=== PATIENT | male | born 1970 | race Two or more races ===

== ENCOUNTER 2025-03-11 01:51 | Inpatient (IN) | payer OTHER ==
[~2025-03-11] VITALS: Ht 167.6 cm; Wt 108.9 kg
[2025-03-11] MEDS ORDERED: NIFEDIPINE20 MG PO (01:58)
[2025-03-11] MEDS ORDERED: METFORMIN HCL500 M3 PO (01:58)
[2025-03-11] MEDS ORDERED: LOSARTAN-HCTZ1 EAC1 PO (01:58)
[2025-03-11] MEDS ORDERED: FAMOTIDINE/PF 20 MG/2 ML VIAL IV PUSH STA (03:27)
[2025-03-11] MEDS ORDERED: KETOROLAC TROMETHAMINE 30 MG VIAL IV STA (03:29)
[2025-03-11] MEDS ORDERED: 0.9 % SODIUM CHLORIDE 1,000 ML IV ONE (03:30)
[2025-03-11 04:02] LABS: BASO % 0.5 % (0.1-1.2); EOS # 0.12 (0.04-0.54); EOS % 1.3 % (0.7-7.0); LYMPH # 2.90 (1.18-3.74); LYMPH % 30.3 % (19.3-53.1); MEAN PLATELET VOLUME 10.20 fl (9.4-12.4); MONO # 1.13 (0.24-0.82); MONO % 11.8 % (4.7-12.5); NEUT # 5.32 (1.56-6.13); NEUT % 55.5 % (34.0-71.1); RED CELL DISTRIBUTION WIDTH 12.4 % (11.6-14.4)
[2025-03-11 04:30] LABS: INR 1.12
[2025-03-11 04:37] LABS: ALT/SGPT 39.0 U/L (12-78); AST/SGOT 20.0 U/L (15-37); BILIRUBIN TOTAL 0.48 mg/dL (0.3-1.2); BILIRUBIN,CONJUGATED 0.15 mg/dL (0.0-0.2); BUN CREA RATIO 16.0 (7.0-25.0); CREATININE SERUM 0.94 mg/dL (0.70-1.30); GFR 83.95; GLOBULINA 4.0 G/DL (2.4-3.5); GLUCOSE FASTING 121.0 mg/dL (65-100); OSMOLALITY SERUM 276.0 MOSM/KG (275-295)
[2025-03-11] MEDS ORDERED: PIPERACILLIN/TAZOBACTAM SODIUM 3.375 GM in 0.9 % SODIUM CHLORIDE 100 ML IV SCH (06:43)
[2025-03-11 07:15] LABS: URINE APPEARANCE Clear; URINE BILIRRUBIN Negative (NEGATIVE); URINE BLOOD Negative; URINE COLOR Yellow; URINE GLUCOSE Negative (NEGATIVE); URINE KETONE Negative (NEGATIVE); URINE LEUKOCYTE Negative; URINE NITRATE Negative; URINE PROTEIN Negative (NEGATIVE); URINE UROBILINOGEN 0.2 E.U./dl
[2025-03-11 07:17] LABS: URINE RBC 3.3 uL (0.0-20.8)
[2025-03-11 07:20] LABS: URINE BACTERIA 2.4 uL (0.0-1933); URINE CAST 0.00 uL (0.0-1.40); URINE EPITHELIAL CELLS 0.4 uL (0.0-38.8); URINE WBC 0.1 uL (0.0-23.2)
[2025-03-11] MEDS ORDERED: hydrALAZINE HCL 20 MG VIAL IV PRN (11:30)
[2025-03-11] MEDS ORDERED: 0.9 % SODIUM CHLORIDE 1,000 ML IV SCH ×2 (11:30→20:00)
[2025-03-11] MEDS ORDERED: ONDANSETRON HCL 4 MG in 0.9 % SODIUM CHLORIDE 50 ML IV PRN (11:30)
[2025-03-11] MEDS ORDERED: ACETAMINOPHEN 325 MG TABLET PO PRN (11:30)
[2025-03-11] MEDS ORDERED: DEXTROSE 50 % IN WATER 0.5 G/ML DISP.SYRIN IV PRN (11:45)
[2025-03-11] MEDS ORDERED: INSULIN LISPRO 1,000 UNIT/10 ML UNITS SUBCUTANEO PRN (11:45)
[2025-03-11] MEDS ORDERED: MORPHINE SULFATE 2 MG/ML SYRINGE IV PRN (13:00)
[2025-03-11 13:25] VITALS: BP 126/85
[2025-03-11] MEDS ORDERED: KETOROLAC TROMETHAMINE 30 MG VIAL IV PRN (18:45)
[2025-03-11 22:00] VITALS: BP 142/81; O2SAT 95
[2025-03-12 01:15] VITALS: BP 150/77; O2SAT 99
[2025-03-12] MEDS ORDERED: KETOROLAC TROMETHAMINE 30 MG VIAL IV PRN (02:15)
[2025-03-12 06:25] LABS: BASO % 0.4 % (0.1-1.2); EOS # 0.10 (0.04-0.54); EOS % 1.2 % (0.7-7.0); LYMPH # 1.74 (1.18-3.74); LYMPH % 21.7 % (19.3-53.1); MEAN PLATELET VOLUME 10.70 fl (9.4-12.4); MONO # 0.77 (0.24-0.82); MONO % 9.6 % (4.7-12.5); NEUT # 5.33 (1.56-6.13); NEUT % 66.5 % (34.0-71.1); RED CELL DISTRIBUTION WIDTH 12.8 % (11.6-14.4)
[2025-03-12 07:00] LABS: BUN CREA RATIO 15.0 (7.0-25.0); CREATININE SERUM 0.96 mg/dL (0.70-1.30); GFR 81.93; GLUCOSE FASTING 136.0 mg/dL (65-100); OSMOLALITY SERUM 278.0 MOSM/KG (275-295)
[2025-03-12 08:00] VITALS: BP 166/82; O2SAT 96
[2025-03-12] MEDS ORDERED: FAMOTIDINE/PF 20 MG/2 ML VIAL IV SCH (09:00)
[2025-03-12] MEDS ORDERED: LOSARTAN/HYDROCHLOROTHIAZIDE 1 UDTAB TABLET PO SCH (09:00)
[2025-03-12] MEDS ORDERED: ACETAMINOPHEN 500 MG GEL..CAP PO PRN (13:15)
[2025-03-12 17:40] VITALS: BP 126/81; O2SAT 99
== END 2025-03-12 18:00 | disposition home or self-care (01) | DRG 399 ==
LOC: ER 01:52 → SEC-K 12:58 → SURH 12:58
PROVIDERS: General Practice; Surgery; ADMIT General Practice; ATTEND General Practice
PROC: 0WQF4ZZ Repair Abdominal Wall, Percutaneous Endoscopic Approach (ICD-10-PCS; 2025-03-11)
PROC: BW21ZZZ Computerized Tomography (CT Scan) of Abdomen and Pelvis (ICD-10-PCS; 2025-03-11)
PROC: BW21YZZ Computerized Tomography (CT Scan) of Abdomen and Pelvis using Other Contrast (ICD-10-PCS; 2025-03-11)
PROC: 0DTJ4ZZ Resection of Appendix, Percutaneous Endoscopic Approach (ICD-10-PCS; principal; 2025-03-11 17:00)
DX: K35.890 Other acute appendicitis without perforation or gangrene (principal); K35.80 Unspecified acute appendicitis; R10.30 Lower abdominal pain, unspecified; K43.9 Ventral hernia without obstruction or gangrene